=== PATIENT | male | born 1970 | race Caucasian/White ===

== ENCOUNTER 2021-11-07 10:01 | Inpatient (IN) | payer OTHER ==
[~2021-11-07] VITALS: Ht 177.8 cm; Wt 152.4 kg
[2021-11-07] MEDS ORDERED: VERELAN240 MG PO (10:33)
[2021-11-07] MEDS ORDERED: CARVEDILOL25 MG PO (10:33)
[2021-11-07] MEDS ORDERED: PLAVIX75 MG PO (10:34)
[2021-11-07] MEDS ORDERED: LASIX40 MG PO (10:34)
[2021-11-07] MEDS ORDERED: COZAAR50 MG PO (10:34)
[2021-11-07] MEDS ORDERED: ALDACTONE25 MG PO (10:35)
[2021-11-07] MEDS ORDERED: HORIZANT300 MG PO (10:35)
[2021-11-07] MEDS ORDERED: LIPITOR40 M1 PO (10:36)
[2021-11-07] MEDS ORDERED: HUMALOG100 UNIT/2 SQ (10:37)
--- NOTE | 2021-11-07 10:54 | NUR ---
SE RECIBE PT ALERTA Y ORIENTADO X3 ACOMPANADO DE [place]AI[place] HERMANA, PT REFIERE QUE DR.LOPEZ AMBROCIO LE ORDENO VENIR A ER YA QUE SERGE PRESENTA BACTERIA EN U[place]A DE [place], AMBAS PIERNAS VISIBLEMENTE INFLAMADAS Y ENROJECIDAS. PT SE ATIENDE LAS [place]ER[place] EN EL [facility]. PT SE LE ES PRESION ARTERIAL MANUAL Y ESTA SE PRESENTA 160/120. SE LE PREGUNTA A PT SOBRE SEKOU MEDICAMENTOS DE RUTINAS Y SERGE REFIERE NO HABERSE TOMADO CARMEN DE [place] YA QUE ESTA LE [place] DEBILIDAD. SE MONITOREAN S/V Y SE UBICA EN CAMA 10.
--- NOTE | 2021-11-07 11:26 | NUR ---
PACIENTE EVALUADO POR EL DR. LICEA KERRY QUIEN [place] MEDICO. SE ORIENTA A PACIENTE SOBRE EL MISMO REFIERE ENTENDER Y RN VIERA EJECUTA ORDENES MEDICAS. PENDIENTE RESULTADOS DE ALB.
== END 2021-12-06 20:04 | disposition home or self-care (01) | DRG 637 ==
LOC: ER 10:01 → SURH 20:52 → MEDI 20:52 → SURH 11-08 00:03 → ICU 11-10 18:15 → MEDJ 11-29 21:22
PROVIDERS: ADMIT Internal Medicine; ATTEND Internal Medicine
PROC: 5A09557 Assistance with Respiratory Ventilation, Greater than 96 Consecutive Hours, Continuous Positive Airway Pressure (ICD-10-PCS; principal; 2021-11-09)
PROC: 02HV33Z Insertion of Infusion Device into Superior Vena Cava, Percutaneous Approach (ICD-10-PCS; 2021-11-09)
PROC: 4A12X4Z Monitoring of Cardiac Electrical Activity, External Approach (ICD-10-PCS; 2021-11-10)
PROC: B24BYZZ Ultrasonography of Heart with Aorta using Other Contrast (ICD-10-PCS; 2021-11-11)
PROC: 0BH17EZ Insertion of Endotracheal Airway into Trachea, Via Natural or Artificial Opening (ICD-10-PCS; 2021-11-12)
PROC: 5A1945Z Respiratory Ventilation, 24-96 Consecutive Hours (ICD-10-PCS; 2021-11-12)
DX: E11.621 Type 2 diabetes mellitus with foot ulcer (principal); J96.02 Acute respiratory failure with hypercapnia; J96.01 Acute respiratory failure with hypoxia; I50.23 Acute on chronic systolic (congestive) heart failure; A41.52 Sepsis due to Pseudomonas; R65.20 Severe sepsis without septic shock; I83.228 Varicose veins of left lower extremity with both ulcer of other part of lower extremity and inflammation; L97.528 Non-pressure chronic ulcer of other part of left foot with other specified severity; L97.518 Non-pressure chronic ulcer of other part of right foot with other specified severity; L03.116 Cellulitis of left lower limb; Z16.24 Resistance to multiple antibiotics; E66.2 Morbid (severe) obesity with alveolar hypoventilation; Z68.42 Body mass index [BMI] 45.0-49.9, adult; I11.0 Hypertensive heart disease with heart failure; E11.51 Type 2 diabetes mellitus with diabetic peripheral angiopathy without gangrene; I25.10 Atherosclerotic heart disease of native coronary artery without angina pectoris; I89.0 Lymphedema, not elsewhere classified; E78.5 Hyperlipidemia, unspecified; B96.5 Pseudomonas (aeruginosa) (mallei) (pseudomallei) as the cause of diseases classified elsewhere; Z20.822 Contact with and (suspected) exposure to COVID-19; Z95.810 Presence of automatic (implantable) cardiac defibrillator